=== PATIENT | female | born 1970 | race Caucasian/White ===

== ENCOUNTER 2016-06-17 19:54 | Emergency (ER) | payer MEDICAID ==
[~2016-06-17] VITALS: Ht 157.5 cm; Wt 97.1 kg
[2016-06-17 20:48] LABS: BASOPHIL % 1.1 % (0-2); PLATELET COUNT 233 x10^3mcL (130-400); RED CELL DISTRIBUTION WIDTH 13.8 % (11.5-14.5)
[2016-06-17 20:58] LABS: ALBUMIN 3.4 g/dL (3.4-5.0); ALKALINE PHOSPHATASE 74 U/L (46-116); ALT/SGPT 33 U/L (14-59); AMYLASE 45 U/L (25-115); AST/SGOT 43 U/L (15-37); BILIRUBIN TOTAL 0.5 mg/dL (0.20-1.00); CARBON DIOXIDE 26.5 mmol/L (21-32); CHLORIDE SERUM 101 mmol/L (98-107); CREATININE SERUM 0.9 mg/dL (0.6-1.0); GFR1 > 60 mL/min; GLUCOSE SERUM 196 mg/dL (74-106); LIPASE 161 IU/L (73-393); POTASSIUM SERUM 3.5 mmol/L (3.5-5.1); SODIUM SERUM 139 mmol/L (136-145); TOTAL PROTEIN, SERUM 7.3 g/dL (6.4-8.2)
[2016-06-17 21:02] LABS: CALCIUM 8.5 mg/dL (8.5-10.1)
[2016-06-17 22:27] VITALS: BP 132/78
== END 2016-06-17 22:27 | disposition home or self-care (01) ==
LOC: ED 19:54
PROVIDERS: Emergency Medicine
DX: A08.4 Viral intestinal infection, unspecified (principal)
CPT/HCPCS: 83880; C9113; J2405; J2765; J7030

== ENCOUNTER 2016-07-13 20:00 | Emergency (ER) | payer MEDICAID ==
[2016-07-13 21:55] VITALS: BP 162/79
== END 2016-07-13 21:55 | disposition home or self-care (01) ==
LOC: ED 20:00
DX: R05 Cough (principal); R51 Headache; Z79.899 Other long term (current) drug therapy
CPT/HCPCS: J7613; J7644; Q0092

== ENCOUNTER 2017-05-17 19:54 | Emergency (ER) | payer MEDICAID ==
[~2017-05-17] VITALS: Ht 157.5 cm; Wt 97.6 kg
[2017-05-17 20:17] VITALS: Ht 157.5 cm; Wt 97.6 kg
[2017-05-17 21:46] VITALS: BP 142/79
== END 2017-05-17 21:46 | disposition home or self-care (01) ==
LOC: ED 19:54
DX: J06.9 Acute upper respiratory infection, unspecified (principal); R03.0 Elevated blood-pressure reading, without diagnosis of hypertension; M79.1 Myalgia

== ENCOUNTER 2018-04-16 15:10 | Emergency (ER) | payer MEDICAID ==
[~2018-04-16] VITALS: Ht 154.9 cm; Wt 91.2 kg
[2018-04-16 15:18] VITALS: Ht 154.9 cm; Wt 91.2 kg
[2018-04-16 15:29] VITALS: BP 148/86
== END 2018-04-16 16:43 | disposition home or self-care (01) ==
LOC: ED 15:10
DX: J20.9 Acute bronchitis, unspecified (principal); R10.9 Unspecified abdominal pain

== ENCOUNTER 2019-03-12 01:14 | Emergency (ER) | payer MEDICAID ==
[~2019-03-12] VITALS: Ht 162.6 cm; Wt 97.5 kg
[2019-03-12 01:17] VITALS: Ht 162.6 cm; Wt 97.5 kg
[2019-03-12 03:12] VITALS: BP 141/80
== END 2019-03-12 02:49 | disposition home or self-care (01) ==
LOC: ED 01:14
DX: N76.0 Acute vaginitis (principal); Z98.51 Tubal ligation status